=== PATIENT | male | born 1975 | race African-American/Black ===

== ENCOUNTER 2017-07-18 08:43 | Emergency (ER) | payer OTHER ==
[2017-07-18] MEDS: SOD CHLORIDE 0.9% 1,000 ML IV (09:18)
[2017-07-18] MEDS: ONDANSETRON 4 MG INJ IV ×2 (09:18→10:22)
[2017-07-18] MEDS: HYDROmorphONE 1 MG/5 ML IV SYRINGE IV ×2 (09:19→10:22)
[2017-07-18 09:25] LABS: ADD MAN DIFF? NO
[2017-07-18 09:26] LABS: WHITE BLOOD COUNT 12.8 10^3/ul (4.8-10.8)
[2017-07-18 09:26] LABS: BASOPHILS % 0.3 % (0.0-2.0); EOSINOPHILS # 0.1 10^3/ul (0.0-0.5); EOSINOPHILS % 0.9 % (0.0-7.0); HEMATOCRIT 45.5 % (42.0-52.0); HEMOGLOBIN 15.3 g/dl (14.0-18.0); LYMPHOCYTES # 1.2 10^3/ul (0.8-2.9); LYMPHOCYTES % 9.5 % (15.0-51.0); MEAN CORPUSCULAR HEMOGLOBIN 28.2 pg (29.0-33.0); MEAN CORPUSCULAR HGB CONC 33.6 g/dl (32.0-37.0); MEAN CORPUSCULAR VOLUME 83.9 fl (82.0-101.0); MEAN PLATELET VOLUME 9.1 fl (7.4-10.4); MONOCYTE # 0.4 10^3/ul (0.3-0.9); MONOCYTES % 2.8 % (0.0-11.0); NEUTROPHILS % 86.3 % (39.0-77.0); PLATELET COUNT 245 10^3/UL (140-415); RED BLOOD COUNT 5.42 10^6/ul (4.70-6.10)
[2017-07-18 09:44] LABS: ANION GAP 15 (8-16); BLOOD UREA NITROGEN 19 mg/dl (7-20); CALCIUM 9.5 mg/dl (8.4-10.2); CARBON DIOXIDE 29 mmol/L (21-31); CHLORIDE 107 mmol/L (97-110); CREATININE 1.29 mg/dl (0.61-1.24); GLUCOSE 103 mg/dl (70-220); POTASSIUM 4.5 mmol/L (3.5-5.1); SODIUM 146 mmol/L (135-144)
[2017-07-18 09:57] LABS: TROPONIN-I < 0.012 ng/ml (0.00-0.12)
[2017-07-18] MEDS: LIDOCAINE/MYLANTA 40 ML BTL PO (10:22)
[2017-07-18 11:14] LABS: ADD UMIC NO; UR ASCORBIC ACID NEGATIVE (NEGATIVE); UR BILIRUBIN (Dip) NEGATIVE (NEGATIVE); UR BLOOD (Dip) NEGATIVE (NEGATIVE); UR CLARITY CLEAR (CLEAR); UR COLOR YELLOW (YELLOW); UR GLUCOSE (Dip) NEGATIVE (NEGATIVE); UR KETONES (Dip) NEGATIVE (NEGATIVE); UR LEUKOCYTE ESTERASE (Dip) NEGATIVE Leu/ul (NEGATIVE); UR NITRITE (Dip) NEGATIVE (NEGATIVE); UR SPECIFIC GRAVITY (Dip) 1.017 (1.003-1.030); UR TOTAL PROTEIN (Dip) NEGATIVE (NEGATIVE); UR UROBILINOGEN (Dip) NEGATIVE (NEGATIVE)
== END 2017-07-18 11:35 | disposition left against medical advice (07) ==
LOC: E/R 11:35
DX: R10.9 Unspecified abdominal pain (principal); J45.909 Unspecified asthma, uncomplicated; F17.210 Nicotine dependence, cigarettes, uncomplicated
CPT/HCPCS: 36415; 74176; 80048; 81003; 84484; 85025; 93005; 96374; 96375; 96376; 99285-25